=== PATIENT | male | born 1965 | race Caucasian/White ===

== ENCOUNTER 2017-12-04 09:11 | Emergency (ER) | payer BC, OTHER ==
[2017-12-04 09:28] VITALS: BP 151/98
--- NOTE | 2017-12-04 10:28 | RAD ---
Indication: RIGHT shoulder pain and decreased range of motion since fall in September 2017. Comparison: RIGHT shoulder of the same date. Technique: AP views of the clavicles without and with weights. Report: Normal bilateral sternoclavicular and acromioclavicular joint alignment in the AP projection without and with weights. Mild osteophytosis and subchondral sclerosis present at the bilateral acromioclavicular joints. Negative for fracture. Unremarkable soft tissue contours. IMPRESSION: #. Negative for clavicle fracture or articular malalignment. #. Mild bilateral AC joint osteoarthritis.
--- NOTE | 2017-12-04 10:30 | RAD ---
Indication: RIGHT shoulder pain and decreased range of motion post fall in September 2017. Comparison: Clavicle exam of the same date. Technique: Internal rotation AP, external rotation Grashey, scapular Y, axillary views RIGHT shoulder Report: Negative for fracture. Mild AC joint osteophytosis. Small inferior acromial bone spur. Normal acromioclavicular and glenohumeral joint alignment. Negative for calcific tendinopathy. Unremarkable soft tissue contours. IMPRESSION: #. Mild AC joint osteoarthritis.
--- NOTE | 2017-12-04 11:04 | UC ---
Shoulder Pain HPI - HPI Summary HPI Summary: 52-year-old male coming in with complaint of right shoulder pain. This started about 2 months ago when somebody landed on the right shoulder. He's had pain since that time. The pain is been increasing. He's been taking naproxen alternating with ibuprofen with some relief however the condition continues to get worse. The pain is primarily in the right shoulder does radiate down into the upper arm and up into the neck. He denies primary neck pain are concerned that this is a neck injury. No weakness or numbness. There is decreased range of motion of the right shoulder secondary to pain. - History of Current Complaint Chief Complaint: UCUpperExtremity Stated Complaint: RIGHT SHOULDER/NECK PAIN Time Seen by Provider: 12/04/17 09:44 Pain Intensity: 10 - Allergies/Home Medications Allergies/Adverse Reactions: Allergies Allergy/AdvReac Type Severity Reaction Status Date / Time Penicillins Allergy Difficulty Verified 12/04/17 09:29 Breathing Home Medications: Home Medications Esomeprazole Magnesium [Nexium 24Hr] 20 mg PO DAILY 12/04/17 [History Confirmed 12/04/17] Ibuprofen TAB* [Motrin TAB* 800 MG] 1 tab PO Q8HR PRN 12/04/17 [History Confirmed 12/04/17] Levocetirizine Dihydrochloride [Xyzal Allergy 24Hr] 5 mg PO DAILY 12/04/17 [ History Confirmed 12/04/17] Naproxen Sodium [Naproxen 220 mg] 440 mg PO Q4H 12/04/17 [History Confirmed ] PMH/Surg Hx/FS Hx/Imm Hx Cardiovascular History: Hypertension - Surgical History Surgical History: Yes Surgery Procedure, Year, and Place: abdominal hernia repair x2 ( 4 & 5 YRS AGO ) - Family History Known Family History: Positive: Hypertension - mother Negative: Diabetes - Social History Alcohol Use: Occasionally Substance Use Type: None Smoking Status (MU): Former Smoker Type: Cigarettes Have You Smoked in the Last Year: No When Did the Patient Quit Smoking/Using Tobacco: 28 years ago - Immunization History Most Recent Influenza Vaccination: 12/2013 Review of Systems Constitutional: Negative Skin: Negative Eyes: Negative ENT: Negative Respiratory: Negative Cardiovascular: Negative Gastrointestinal: Negative Motor: Decreased ROM - See history present illness Neurovascular: Negative Musculoskeletal: Arthralgia, Decreased ROM - See history present illness Neurological: Negative Is Patient Immunocompromised?: No All Other Systems Reviewed And Are Negative: Yes Physical Exam Triage Information Reviewed: Yes Appearance: Well-Appearing, Ill-Appearing - mild with rom of rt shoulder Vital Signs: Initial Vital Signs Temp 97.5 F 12/04/17 09:21 Pulse 89 12/04/17 09:21 Resp 22 12/04/17 09:21 BP 151/98 12/04/17 09:21 Pulse Ox 99 12/04/17 09:21 Vital Signs Reviewed: Yes Eye Exam: Normal Eyes: Positive: Conjunctiva Clear Neck exam: Normal Neck: Positive: Supple, Nontender Respiratory: Positive: No respiratory distress Musculoskeletal: Positive: Other: - Patient is tender to palpation right at the right shoulder joint. Fingers hands wrists and elbows have full range of motion and strength 5 out of 5 bilaterally. Normal radial pulses bilaterally no sensation deficit. Shoulder extension on the left is 170 on the right is 110. Shoulder abduction on the left is 110 on the right 90. Internal rotation on the left is L1 on the right it is L3. Neurological Exam: Normal Neurological: Positive: Alert Psychological Exam: Normal Psychological: Positive: Age Appropriate Behavior Skin Exam: Normal Shoulder Course/Dx - Course Course Of Treatment: Order Information: SHOULDER RIGHT 2+ VWS. Accession Number : [id number]. CPT: 88415. Indication: RIGHT shoulder pain and decreased range of motion post fall in September 2017. Comparison: Clavicle exam of the same date. Technique: Internal rotation AP, external rotation Grashey, scapular Y, axillary views. RIGHT shoulder. Report: Negative for fracture. Mild AC joint osteophytosis. Small inferior acromial bone. spur. Normal acromioclavicular and glenohumeral joint alignment. Negative for calcific. tendinopathy. Unremarkable soft tissue contours. IMPRESSION: #. Mild AC joint osteoarthritis. . <Electronically signed by Luís Corona MD in [place]> 12/04/17 1026. Order Information: ACROMIOCLAVICULAR JOINTS. Accession Number: [id number]. CPT: 85079. Indication: RIGHT shoulder pain and decreased range of motion since fall in September 2017. Comparison: RIGHT shoulder of the same date. Technique: AP views of the clavicles without and with weights. Report: Normal bilateral sternoclavicular and acromioclavicular joint alignment in the AP. projection without and with weights. Mild osteophytosis and subchondral sclerosis present. at the bilateral acromioclavicular joints. Negative for fracture. Unremarkable soft tissue. contours. IMPRESSION: #. Negative for clavicle fracture or articular malalignment. #. Mild bilateral AC joint osteoarthritis. . < Electronically signed by Luís Corona MD in [facility]> 12/04/17 1025. I discussed discussed x-ray results with the patient. I discussed range of motion exercises for shoulder. Plan is continue the nonsteroidal anti-inflammatories and woman and hydrocodone for pain relief. Follow-up will be with orthopedics. Concern is for rotator cuff injury. - Differential Dx/Diagnosis Provider Diagnoses: right shoulder pain Discharge - Sign-Out/Discharge Documenting (check all that apply): Patient Departure All imaging exams completed and their final reports reviewed: Yes - Discharge Plan Condition: Stable Disposition: HOME Prescriptions: HYDROcodone/ACETAMIN 5-325 MG* [[place] 5-325 TAB*] 1 tab PO Q4H PRN #30 tab MDD 6 PRN Reason: Pain Patient Education Materials: Shoulder Pain (ED) Referrals: Haylee Dunn MD [Primary Care Provider] - Lianet Yao MD [Medical Doctor] - Additional Instructions: FOLLOW UP WITH YOUR ORTHOPEDIST. GET RECHECKED FOR ANY WORSENING OF YOUR CONDITION OR QUESTIONS OR CONCERNS. - Billing Disposition and Condition Condition: STABLE Disposition: Home
== END 2017-12-04 11:43 | disposition home or self-care (01) ==
LOC: UCCORT 09:11
DX: M19.019 Primary osteoarthritis, unspecified shoulder (principal); Z87.891 Personal history of nicotine dependence; Z88.0 Allergy status to penicillin
CPT/HCPCS: 73050; 99212; G0463